=== PATIENT | female | born 1995 | race Asian ===

== ENCOUNTER 2024-05-08 08:00 | Outpatient (CLI) | payer OTHER ==
[2024-05-08 20:47] LABS: CHLAMYDIA TRACHOMATIS DNA NEGATIVE (NEGATIVE); NEISSERIA GONORRHOEAE DNA NEGATIVE (NEGATIVE); TRICHOMONAS VAGINALIS DNA NEGATIVE (NEGATIVE)
== END 2024-05-08 23:59 | disposition home or self-care (01) ==
LOC: LAB.WC 08:00
PROVIDERS: ATTEND Nurse Practitioner
DX: Z11.3 Encounter for screening for infections with a predominantly sexual mode of transmission (principal)
CPT/HCPCS: 87491; 87591; 87661

== ENCOUNTER 2024-05-26 15:24 | Outpatient (CLI) | payer OTHER ==
[2024-05-26 15:52] LABS: BASOPHILS % (AUTO) 0.2 %; EOSINOPHILS # (AUTO) 0.1 10^3/uL (0.0-0.7); EOSINOPHILS % (AUTO) 1.4 %; LYMPHOCYTES # (AUTO) 1.6 10^3/uL (1.5-3.5); LYMPHOCYTES % (AUTO) 16.6 %; MEAN CORPUSCULAR HEMOGLOBIN 27.8 pg (27.0-31.0); MEAN CORPUSCULAR HGB CONC 31.6 g/dL (32.0-36.0); MEAN PLATELET VOLUME 9.3 fL (7.9-10.8); MONOCYTES # (AUTO) 0.7 10^3/uL (0.0-1.0); MONOCYTES % (AUTO) 7.1 %; NEUTROPHILS # (AUTO) 7.1 10^3/uL (1.5-6.6); NEUTROPHILS % (AUTO) 74.2 %; PLT - PLATELET COUNT 304 10^3/uL (130-450); RED BLOOD COUNT 4.32 10^6/uL (4.20-5.40); RED CELL DISTRIBUTION WIDTH 12.7 % (12.0-15.0); WHITE BLOOD COUNT 9.6 x10^3/uL (4.8-10.8)
[2024-05-26 16:20] LABS: BILIRUBIN,URINE NEGATIVE (NEGATIVE); GLUCOSE, URINE (UA) NEGATIVE (NEGATIVE); KETONES,URINE (UA) NEGATIVE (NEGATIVE); LEUKOCYTE ESTERASE, URINE NEGATIVE (NEGATIVE); NITRITE,URINE NEGATIVE (NEGATIVE); OCCULT BLOOD,URINE NEGATIVE (NEGATIVE); PROTEIN,URINE NEGATIVE (NEGATIVE); UROBILINOGEN,URINE 0.2 (NORMAL) E.U./dL (NORMAL)
[2024-05-26 16:31] LABS: CLARITY,URINE CLEAR (CLEAR)
[2024-05-26 17:10] LABS: RBC,URINE None Seen /HPF (0-5); SQUAMOUS EPITHELIAL CELL,UR FEW Squamous (<= Few); WBC,URINE 0-3 /HPF (0-5)
[2024-05-26 17:11] LABS: BACTERIA,URINE Few /HPF (None Seen)
[2024-05-27 03:11] LABS: HBsAG SCREEN Negative (Negative)
[2024-05-27 06:10] LABS: HIV SCREEN 4TH GENERATION Non Reactive (Non Reactive)
[2024-05-27 07:10] LABS: RPR Non Reactive (Non Reactive)
[2024-05-27 12:09] LABS: VARICELLA-ZOSTER AB IGG 291 index (Immune >165)
[2024-05-28 05:09] LABS: HCV AB Non Reactive (Non Reactive)
== END 2024-05-26 15:25 | disposition home or self-care (01) ==
LOC: LAB 15:24
PROVIDERS: ATTEND Nurse Practitioner
DX: Z34.00 Encounter for supervision of normal first pregnancy, unspecified trimester (principal); Z36.89 Encounter for other specified antenatal screening
CPT/HCPCS: 36415; 81001; 85025; 86592; 86762; 86787; 86803; 86850; 86900; 86901; 87086; 87340; 87389

== ENCOUNTER 2024-11-30 00:27 | Inpatient (IN) ==
[2024-11-30 01:06] LABS: RUPTURE OF MEMBRANES PLUS POSITIVE (NEGATIVE)
[2024-11-30] MEDS ORDERED: lidocaine 1% 20 ML MDV ID PRN (01:33)
[2024-11-30] MEDS ORDERED: METHYLERGONOVINE 0.2 MG/ML VIAL IM PRN (01:33)
[2024-11-30] MEDS ORDERED: TERBUTALINE 1 MG/ML VIAL SUBQ PRN (01:33)
[2024-11-30] MEDS ORDERED: OXYTOCIN 10 UNIT/ML VIAL IM PRN (01:33)
[2024-11-30] MEDS ORDERED: LACTATED RINGERS 1,000 ML IV PRN (01:33)
[2024-11-30] MEDS ORDERED: NIFEdipine 10 MG CAPSULE PO PRN ×2 (01:33→18:43)
[2024-11-30] MEDS ORDERED: miSOPROStoL 200 MCG TABLET BC PRN (01:33)
[2024-11-30] MEDS ORDERED: LABETALOL 20 MG/4 ML SYRINGE IVP PRN ×5 (01:33→18:43)
[2024-11-30] MEDS ORDERED: hydrALAZINE INJ 20 MG/ML VIAL IVP PRN ×3 (01:33→18:43)
[2024-11-30] MEDS ORDERED: SODIUM CHLORIDE FLUSH 0.9% 10 ML SYRINGE IVP PRN (01:33)
[2024-11-30] MEDS ORDERED: miSOPROStoL 200 MCG TABLET PR PRN (01:33)
[2024-11-30] MEDS ORDERED: SODIUM CHLORIDE FLUSH 0.9% 10 ML SYRINGE IVP SCH (02:00)
[2024-11-30 02:13] LABS: BASOPHILS % (AUTO) 0.3 %; EOSINOPHILS # (AUTO) 0.1 10^3/uL (0.0-0.7); HCT - HEMATOCRIT 44.2 % (37.0-47.0); HGB - HEMOGLOBIN 14.3 g/dL (12.0-16.0); LYMPHOCYTES # (AUTO) 1.6 10^3/uL (1.5-3.5); LYMPHOCYTES % (AUTO) 15.4 %; MEAN CORPUSCULAR HEMOGLOBIN 29.3 pg (27.0-31.0); MEAN CORPUSCULAR HGB CONC 32.4 g/dL (32.0-36.0); MEAN CORPUSCULAR VOLUME 90.6 fL (81.0-99.0); MEAN PLATELET VOLUME 10.2 fL (7.9-10.8); MONOCYTES # (AUTO) 1.1 10^3/uL (0.0-1.0); MONOCYTES % (AUTO) 10.4 %; NEUTROPHILS # (AUTO) 7.6 10^3/uL (1.5-6.6); NEUTROPHILS % (AUTO) 71.7 %; PLT - PLATELET COUNT 266 10^3/uL (130-450); RED BLOOD COUNT 4.88 10^6/uL (4.20-5.40); RED CELL DISTRIBUTION WIDTH 13.3 % (12.0-15.0); WHITE BLOOD COUNT 10.6 x10^3/uL (4.8-10.8)
--- NOTE | 2024-11-30 02:15 | HISTORY & PHYSICAL EXAMINATION ---
Admit History Smoking Status: Never smoker Other Maternal History Other Maternal History: HPI: This 29 yo @ 37+6 weeks by LMP and confirmed by 8 week ultrasound. Last night 11/29/2024 @ 23:30, she felt a gush of fluid and an increase of contractions since that time. She wasn't sure if it was her bag of carrion at first because she was only leaking a little. She later had a much bigger gush. Then the contractions have continued to become stronger and closer together and she is significantly breathing through them now. Upon arrival her cervix was 1.5/70/-3 and vertex with grossly ruptured. We reviewed management options at length and patient desires expectant management at this time. She has been a patient of [facility] for the duration of her which has remained uncomplicated with the exception of increased maternal weight gain and 7cm fibroid in the lower uterine segment. She wears upper and lower dentures. ROS: No Headache, visual changes or right upper quadrant abdominal pain. Denies significant N/V. Denies urinary urgency or dysuria. All other symptoms reviewed and were negative except per HPI. In the event of an emergency, accepts the administration of blood products. Recent BP: WNL Labs: pending Last u/s EFW: 2740g/ 56% @ 35 weeks Total maternal weight gain: 64# LMP: 03/10/2024 ASHLEY by LMP: 12/15/2024 US: 05/08/2024 @ 8+3 weeks, CW dates Final ASHLEY: 12/15/2024 PROBLEMS: - Has dentures (top and bottom) very self conscious without. Discussed that if she needs to go to the operating room, they may need to be removed depending on anesthesia recommendations. -7cm uterine fibroid: -Active management of the third stage -Type and cross x 2 units on admission -39wk IOL -Excessive weight gain in (52lbs at 29wk visit, 56# at 33+6 weeks) -Impaired 1hr glucose: 3 hour WNL FOB: Damian other children (Jackson's step son/ Damian's adopted son): x1 ALLERGIES: Tylenol(midol), *Ibuprofen* RX: Vitamin FMHX: Father High blood pressure Surgeries: none, all teeth removed except for back molars Social Hx: Monogamous with male partner. Denies current use of alcohol or tobacco, marijuana or other recreational drugs. Reports that she is safe in current relationship. course: Pre- Weight: 118lb BMI: 23.25 Blood type: O+ Antibody: negative CBC: PLT 304 HCT 38.0 HGB 12.0 RUB: immune VZV: immune HBsAg: NR HepC: NR RPR/AB-EIA: NR HIV: NR PAP: 05/10/2024 neg GC/CT: neg HSV: denies Genetic testing: declined Covid: Flu: 10/03/2024 RSV: 10/31/2024 FAS: 07/31/2024 Placenta: Anterior Cord: 3VC KASH: 11.9cm EFW: 427g 93%tile 11/13/2024 (35+6 weeks) 2740g/ 56% 50gm OGCT: 154 3HR GTT: WNL - F 83; 1hr 119; 2hr 106; 3hr 103 TDAP: 10/03/2024 Breast Pump: 10/03/2024 RSV 10/31/2024 Antibody screen: 3rd trimester PLT 260 HCT 38.3 HGB 12.4 3rd trimester RPR NR GBS:Negative Delivery plan: Desires epidural for pain management. . Okay with active management of the third stage. MOD: Anticipate Contraception:unsure Physical exam: Normocephalic, atraumatic No increased work for breathing Abdomen gravid, soft, nontender. EFW 3600 FHR baseline 140, moderate variability, + accelerations, no decelerations Contractions palpate moderate every 2-4 minutes with soft resting tone SVE 1.5/thick/high, membranes grossly ruptured. RN exam. Bilateral LE's trace edema Mood is good. Assessment: 29 yo @ 37+6 weeks gestation by 8 wk U/S Early labor FHR Cat I GBS NEG 7cm lower uterine fibroid Plan: Admit to [facility] for expectant management Continuous monitoring/ Intermittent heart rate auscultation. Increased bleeding risk with uterine fibroid. Will type and cross two units. Plan on active management of third stage Jacuzzi PRN. Nitrous oxide PRN. Epidural PRN Maternal Request. Anticipate . HPI Current : Vital Signs Temperature 37.0 C 11/30/24 01:12 Pulse Rate 73 11/30/24 01:12 Respiratory Rate 18 11/30/24 01:12 Blood Pressure 118/72 11/30/24 01:12 Meds/Allgy Home Medications Ambulatory Orders Medication Instructions Recorded Confirmed vitamins no.159-iron tab PO 08/02/24 11/15/24 fumarate 28 mg-folic acid 800 mcg tablet ( Vitamin) Allergies Allergies Allergy/AdvReac Type Severity Reaction Status Date / Time acetaminophen (From [facility]) Allergy Intermediate Rash Verified 11/15/24 09:33 ibuprofen Allergy Intermediate Rash Verified 11/15/24 09:33 pamabrom (From [facility]) Allergy Intermediate Rash Verified 11/15/24 09:33 PFSH Active Problems All Active Problems (Updated 11/23/24 @ 09:15 by Megan Person TOBACCO ROLLER) Wears dentures (Acute) Uterine size date discrepancy (Acute) Excessive weight gain affecting (Acute) Uterine size date discrepancy (Acute) Supervision of normal first in third trimester (Acute) Abnormal glucose tolerance affecting , antepartum (Acute) Family History Family History (Updated 08/02/24 @ 11:27 by Cici Colin MA) Father High blood pressure Social History Social History (Updated 08/02/24 @ 11:27 by Cici Colin MA) Smoking Status: Never smoker Do you vape?: No ETOH Use: None Substance Use: denies use Physical Abdominal Exam Vital Signs: Temp Pulse Resp BP 37.0 C 73 18 118/72 11/30/24 01:12 11/30/24 01:12 11/30/24 01:12 11/30/24 01:12 Plan for Labor Plan For Labor I expect patient to be DC'd or transferred within 96 hours.: Yes Conclusion/Plan Lab Results 11/30/24 02:00
[2024-11-30] MEDS ORDERED: ROPIVACAINE 0.2% 200 MG/100 ML BAG EP ONE (05:43)
[2024-11-30] MEDS ORDERED: NALOXONE 0.4 MG/ML VIAL IVP PRN ×2 (06:14→18:43)
[2024-11-30] MEDS ORDERED: diphenhydrAMINE INJ 50 MG/ML VIAL IVP PRN (06:14)
[2024-11-30] MEDS ORDERED: METOCLOPRAMIDE 10 MG/2 ML VIAL IVP PRN (06:14)
[2024-11-30] MEDS ORDERED: LACTATED RINGERS 500 ML IV ONE (06:14)
[2024-11-30] MEDS ORDERED: ONDANSETRON 4 MG/2 ML VIAL IVP PRN (06:14)
[2024-11-30] MEDS ORDERED: NALBUPHINE 10 MG/ML AMP IVP PRN (06:14)
[2024-11-30] MEDS ORDERED: ePHEDrine 50 MG/ML VIAL IVP PRN (06:14)
--- NOTE | 2024-11-30 06:17 | ANESTHESIA PROCEDURE NOTE ---
Pre-Anesthesia VS, & Labs Diagnosis Surgical Diagnosis:: labor pain Procedure Procedure: epidural Vitals Vital Signs: Temp Pulse Resp BP 37.0 C 73 18 118/72 11/30/24 01:12 11/30/24 01:12 11/30/24 01:12 11/30/24 01:12 NPO Last Fluid Intake: t/o noc Is Patient ?: Yes Lab Results Current Lab Results: Laboratory Tests 11/30/24 02:00: WBC 10.6, RBC 4.88, Hgb 14.3, Hct 44.2, MCV 90.6, MCH 29.3, MCHC 32.4, RDW 13.3, Plt Count 266, MPV 10.2, Neut # (Auto) 7.6 H, Lymph # (Auto) 1.6, [place] # (Auto) 1.1 H, Eos # (Auto) 0.1, Baso # (Auto) 0.0, Absolute Nucleated RBC 0.00, Nucleated RBC % 0.0, Blood Type O POSITIVE, Antibody Screen NEGATIVE Lab results reviewed: Yes 11/30/24 02:00 Meds/Allgy Home Medications Ambulatory Orders Medication Instructions Recorded Confirmed vitamins no.159-iron tab PO 08/02/24 11/15/24 fumarate 28 mg-folic acid 800 mcg tablet ( Vitamin) Allergies Allergies Allergy/AdvReac Type Severity Reaction Status Date / Time ibuprofen Allergy Intermediate Hives Verified 11/30/24 05:10 pamabrom (From [facility]) Allergy Intermediate Hives Verified 11/30/24 05:09 PFS Active Problems All Active Problems (Updated 11/23/24 @ 09:15 by Megan Person [facility]) Wears dentures (Acute) Uterine size date discrepancy (Acute) Excessive weight gain affecting (Acute) Uterine size date discrepancy (Acute) Supervision of normal first in third trimester (Acute) Abnormal glucose tolerance affecting , antepartum (Acute) Family History Family History (Updated 08/02/24 @ 11:27 by Cici Colin MA) Father High blood pressure Social History Social History (Updated 08/02/24 @ 11:27 by Cici Colin MA) Smoking Status: Former smoker Do you vape?: No ETOH Use: None Substance Use: denies use Anesthesia Exam (Expanded) Exam General: Alert, Oriented x3, Cooperative and Mild distress Dental: WNL Mouth Openin Fingerbreadth Neck Mobility: Normal Mallampati classification: II Thyromental Distance: 4-6 cm Respiratory: No respiratory distress Cardiovascular: Regular rate Neurological: Normal speech Mental/Cognitive Status: Alert/Oriented X3 and Normal for patient Cognitive Status: Within normal limits Plan Plan Anesthesia Type: Epidural Consent for Procedure(s) Verified and Reviewed: Yes Code Status: Attempt Resuscitation ASA Classification ASA classification: 2-Mild systemic disease Is this case an emergency?: No
[2024-11-30 06:38] VITALS: O2SAT 99
--- NOTE | 2024-11-30 09:07 | PROVIDER PROGRESS NOTE ---
Labor Progress Note Labor Progress Note Labor Progress Note/Additional Text: S: Comfortable with epidural. Supportive at bedside O: FHR 140, moderate, + accelerations, - decelerations. SVE 4cm, -2, mid position, grossly ruptured, vtx A: 29yo @ 37+6wks gestation by first trimester U/S PROM 11/29/2024 @ 2300 Minimal cervical change since 0400. Now irregular contraction pattern GBS negative Increased hemorrage and labor dystocia risk (7cm lower uterine segment fibroid) P: Maintain epidural for labor anesthesia Continuous monitoring Begin pitocin per unit protocol and titrate to adequate contraction pattern, reassess for labor progression in 4-6 hours and consider IUPC if needed Will encouraged rotation in bed on peanut ball after patient is comfortable with epidural. Will plan to have OBGYN on unit at time of vaginal delivery Reviewed plan of care with refrigeration lead OBGYN
[2024-11-30] MEDS: OXYTOCIN/SODIUM CHLORIDE 500 ML IV SCH (09:14)
[2024-11-30] MEDS: LACTATED RINGERS 1,000 ML IV SCH (09:45)
--- NOTE | 2024-11-30 12:00 | PHARMACY PROGRESS NOTE ---
Best Possible Medication History Admit Date and Time: 11/30/24 0133 Home Medications Medication Instructions Recorded Confirmed Type vitamins no.159-iron 1 tab PO DAILY 08/02/24 11/30/24 History fumarate 28 mg-folic acid 800 mcg tablet ( Vitamin) aspirin 81 mg tablet,delayed 81 mg PO DAILY 11/30/24 11/30/24 History release (Adult Low Dose Aspirin) Processed by: Pharmacy (Medication Reconciliation completed by Specialty Transformer AssemblerKatherine) Medications reviewed in ED?: No Medication History completed: Yes Patient Interview: Completed Secondary Source(s): Insurance records [facility] Statement: As the person ultimately responsible for medication therapy, providers are able to order a medication from an existing home medication list in [facility] via the "Reconcile Routine" prior to Confirmation of that medication by support representative. Such practice is discouraged except when the physician, in their clinical judgment, deems that a medical need exists for a medication without regard to previous use.
--- NOTE | 2024-11-30 12:38 | PROVIDER PROGRESS NOTE ---
Labor Progress Note Labor Progress Note Labor Progress Note/Additional Text: Doing well, comfortable with epidural. SVE 6/80/-2 unable to tirate pitocin further as contractions are regular and appear to be q 2.5-3 minutes. IUPC placed. Some small variables, none significant. 140 moderate variability, + accelerations, no significant decelerations
[2024-11-30] MEDS ORDERED: LIDOCAINE-MPF 2% 5 ML VIAL ONE (14:47)
[2024-11-30] MEDS: ROPIVACAINE 0.2% 200 MG/100 ML BAG EP PRN (14:55)
[2024-11-30] MEDS ORDERED: SODIUM CHLORIDE 0.9% 10 ML VIAL IVP ONE (15:49)
[2024-11-30] MEDS ORDERED: LIDOCAINE-PF 2% 10 ML AMP SUBQ ONE (15:49)
[2024-11-30] MEDS ORDERED: fentaNYL 100 MCG/2 ML VIAL ONE (15:49)
--- NOTE | 2024-11-30 17:08 | ANESTHESIA PROCEDURE NOTE ---
Anesthesia Epidural Template Plan Plan: positive Other Other Comments Other Comments: Patient c/o pain with contractions. Rates pain 7/10. Stated she only got 15 mins of relief with previous bolus. Epidural bolused with 5ml of 2% lidocaine, 100mcg fentanyl and 3ml of PF NS. Epidural infusion changed to 10m q 50 mins PIEB. No PCEA. Patient reports pain level decreased to 2/10 pain after bolus.
[2024-11-30] MEDS ORDERED: CARBOPROST TROMETHAMINE 250 MCG/ML VIAL IM ONE (17:47)
[2024-11-30] MEDS: OXYTOCIN/SODIUM CHLORIDE 500 ML IV PRN (17:50)
[2024-11-30] MEDS: TRANEXAMIC ACID IN NACL 1,000 MG/100 ML BAG IV PRN (18:11)
[2024-11-30] MEDS: fentaNYL 100 MCG/2 ML VIAL IVP PRN (18:22)
[2024-11-30] MEDS ORDERED: LABETALOL 5 MG/1 ML 20 ML MDV IVP PRN (18:43)
[2024-11-30] MEDS ORDERED: SIMETHICONE CHEW 80 MG TABLET PO PRN (18:43)
[2024-11-30] MEDS ORDERED: OXYTOCIN/SODIUM CHLORIDE 500 ML IV PRN (18:43)
--- NOTE | 2024-11-30 18:43 | DELIVERY NOTE ---
Delivery Note Delivery Outcome Delivery Date: 11/30/24 Delivery Time: 17:48 Delivery Comments (Free Text/Narrative) Delivery Comments (Free Text/Narrative): This 29 -year-old, @ 37+7 weeks gestation by first trimester ultrasound/ LMP presented @0030 on 11/30/2024 in early labor and in good condition after SROM 11/29/2024 @ 2330. Cervix was 1.5/70/-2 and Vertex presentation by francia's and exam. GBS negative. Oxytocin for labor augmentation. FHR pattern demonstrated 140 baseline in a category I prior to second stage. Normal labor course. Epidural placed upon maternal request. She then progressed to complete/complete and ready to deliver. : Normal spontaneous vaginal delivery of a viable male infant on 11/30/2024@ 1748. No nuchal cord. The was placed on maternal abdomen, stimulated, dried and placed skin to skin. Apgars 7 & X9 @ 1 & 5 minutes. The umbilical cord was allowed to stop pulsating at which time it was doubly clamped by delivering provider and cut by security team lead. 3VC. Cord blood was obtained. Fundal massage and gently cord traction applied for active management of the third stage, placenta delivered spontaneously and intact and appeared normal. QBL 289cc. Placenta was not sent to pathology. Pitocin administered via IV for hemostasis and allowed to run freely. Initial increased briskness to vaginal bleeding resolved after administration of pitocin bolus and 1g TXA. Uterine massage was performed until uterus was deemed firm. Extra caution was given for hemorrhage risk (initial and postposted) considering the significant uterine fibroid. weight pending at this time. Inspection of the perineum noted an 3rd degree laceration. Dr. Moseley was asked to come to bedside to address the repair. See MD addendum. Once the third degree laceration was repaired, The remaining second degree extending to the left vaginal sulcus was repaired in the usual, sterile fashion with running suture of 3-0 vicryl (rapide). Upon re-inspection the patient was hemostatic. Uterus again massaged and found to be firm. Needle and sponge counts were correct. Uterine fundus firm and there is no excessive bleeding. Tissues well approximated. Skin to skin initiated. Family bonding well. Both mother and baby are in stable condition.
[2024-11-30] MEDS: ACETAMINOPHEN 500 MG TABLET PO PRN (20:16)
[2024-11-30] MEDS: DOCUSATE SODIUM 100 MG CAPSULE PO SCH (22:15)
[2024-12-01] MEDS: PRENATAL VITAMIN TABLET PO SCH (08:51)
--- NOTE | 2024-12-01 10:09 | Discharge Summary ---
Discharge Summary HPI History of Present Illness: Date of Admission: 11/30/2024 Date of Discharge: 12/01/2024 Diagnosis on admission: Assessment: 29 yo @ 37+6 weeks gestation by 8 wk U/S Early labor FHR Cat I GBS NEG 7cm lower uterine fibroid Diagnosis on Discharge 29 yo s/p on 11/30/2024 @1748 3rd degree perineal laceration with repair Normal course Physical exam: Normocephalic, atraumatic Trace edema lower extremities No increased work of breathing Normal uterine involution, FF below umbilicus Scant rubra bleeding Perineal discomfort minimal-moderate. Managed with tylenol and rest Mood is good. Brief History: She is a patient of [facility] who presented on 11/30/2024 with complaints of ROM and contractions. She was found to be linda regularily, received an epidural for pain management and later required augmentation with pitocin for continued labor progression. She spontaneously delivered a viable male apgars 7 and 9 at 1 and 5 minutes respectively. EBL 289 ml. 3rd degree laceration with repair. She has been doing well in her course. She is ambulating and tolerating a regular diet. She is urinating without difficulty and her lochia is normal. Her pain is well controlled without narcotic management. She will be discharged to home today on day 1 and encouraged tylenol and stool softeners PRN. She intends to follow up with [facility] in 1 week for telehealth. Appointment scheduled for 12/07/2024 @ 0930 for telehealth She has been given precautions to call if she has any new or worsening sx such as fevers, chills, abdominal pain, increasing bleeding, or foul smelling vaginal lochia. preeclamptic precautions reviewed as well. RUB: immune VZV: immune RH+ ALLERGIES Allergies Allergy/AdvReac Type Severity Reaction Status Date / Time ibuprofen Allergy Intermediate Hives Verified 11/30/24 05:10 pamabrom (From [facility]) Allergy Intermediate Hives Verified 11/30/24 05:09 MEDICATIONS Ambulatory Orders Medication Instructions Recorded Confirmed vitamins no.159-iron 1 tab PO DAILY 08/02/24 11/30/24 fumarate 28 mg-folic acid 800 mcg tablet ( Vitamin) aspirin 81 mg tablet,delayed 81 mg PO DAILY 11/30/24 11/30/24 release (Adult Low Dose Aspirin) LABS 11/30/24 02:00 Discharge Plan Discharge Prescriptions: No Action aspirin [Adult Low Dose Aspirin] 81 mg tablet,delayed release (DR/EC) 81 mg PO DAILY Vitamin 28 mg iron- 800 mcg tablet 1 tab PO DAILY Print Language: Venezuelan
[2024-12-01] MEDS: GABAPENTIN 100 MG CAPSULE PO PRN (15:47)
[2024-12-02 06:21] VITALS: TEMP 98.1
--- NOTE | 2024-12-02 09:50 | Discharge Summary ---
Discharge Summary HOSPITAL COURSE Hospital Course: Date of Admission: 11/30/2024 Date of Discharge: 12/02/2024 Diagnosis on admission: 1. 29 yo @ 37+6 weeks gestation by 8 wk U/S 2. Early labor 3. FHR Cat I 4. GBS NEG 5. 7cm lower uterine fibroid Diagnosis on Discharge 1. 29 yo PPD #2 2. 3rd degree perineal laceration with repair 3. 4. Normal course Brief History: She is a patient of [facility] who presented on 11/30/2024 with complaints of ROM and contractions. She was found to be linda regularly, received an epidural for pain management and later required augmentation with pitocin for continued labor progression. She spontaneously delivered a viable male infant apgars 7 and 9 at 1 and 5 minutes respectively. EBL 289 ml. 3rd degree laceration with repair. She has been doing well in her course. She is ambulating and tolerating a regular diet. She is urinating without difficulty and her lochia is normal. Her pain is well controlled with oral medications. She will be discharged home today on day #2 with instructions to continue taking her vitamin while and to continue taking Ibuprofen and Tylenol over the counter as needed for pain management. She intends to follow up with myself at [facility] in 1 week for routine visit or sooner if needed. She has been given precautions to call if she has any worsening fevers, chills, abdominal pain, increased vaginal bleeding or foul smelling vaginal lochia. Physical Exam: Normocephalic, atraumatic. Heart RRR w/o M/G/R, lungs CTAB, abdomen soft and nontender with fundus firm at U, perineum intact, light lochia rubra, bilateral LE's no edema. Mood is good. ALLERGIES Allergies Allergy/AdvReac Type Severity Reaction Status Date / Time ibuprofen Allergy Intermediate Hives Verified 11/30/24 05:10 pamabrom (From [facility]) Allergy Intermediate Hives Verified 11/30/24 05:09 MEDICATIONS Ambulatory Orders Medication Instructions Recorded Confirmed vitamins no.159-iron 1 tab PO DAILY 08/02/24 11/30/24 fumarate 28 mg-folic acid 800 mcg tablet ( Vitamin) LABS 11/30/24 02:00 Discharge Plan Discharge Patient Disposition: Home, Self Care Prescriptions: Continued Vitamin 28 mg iron- 800 mcg tablet 1 tab PO DAILY Discontinued aspirin [Adult Low Dose Aspirin] 81 mg tablet,delayed release (DR/EC) 81 mg PO DAILY Print Language: Iraqi Patient Instructions: Vaginal After, , Self Care
[2024-12-02 10:17] VITALS: BP 119/66
--- NOTE | 2024-12-02 13:11 | Labor Flowsheet ---
Labor Flowsheet Datetime Report Generated by CPN: 12/02/2024 13:10 Datetime: 12/02/2024 10:17 VITAL SIGNS NBP Sys/Heike/Mean (mmHg): 119 : 66 : 76 Pulse: 71 Datetime: 11/30/2024 20:09 SpO2 (%): 99 Datetime: 11/30/2024 18:49 Stage of : Recovery Datetime: 11/30/2024 17:49 LaborFlag: Labor Datetime: 11/30/2024 17:47 UTERINE ACTIVITY Monitor Mode: Internal Frequency (min): 2 Quality: Strong Duration (sec): 40-70 Pattern: Normal: <= 5 Contractions in 10 Minutes Resting Tone (Palpate): Relaxed FHR Baseline Rate : 150 Variability: Moderate 6-25 bpm Datetime: 11/30/2024 17:30 Accelerations: 15X15 Decelerations: Variable Datetime: 11/30/2024 17:19 COMMUNICATION Communication: Provider at Bedside Datetime: 11/30/2024 17:15 Pitocin Checklist: At Least 1 Acceleration of 15 bpm x 15 Seconds in 30 Minutes or Adequate Variabi lity; No More than 1 Late Deceleration Occurred in Past 30 Minutes; No More than 2 Variable Decelerat ions > 60 Seconds in Duration and decreasing >60 bpm in 30 minutes; No More than 5 Uterine Contractio ns in 10 Minutes for any 20 Minute Interval; Uterus Palpates Soft between Contractions; IUPC Resting Tone less than 25 mmHg ASSESSMENT A Monitor Mode: External US Datetime: 11/30/2024 17:00 Resting Tone IUP (mmHg): 20 [place] Units (mmHg): 320 Datetime: 11/30/2024 16:56 I/O Interventions: [place]air Discontinued STAGE 2 Pushing: Coached on Pushing; Urge to Push Pushing Position: Pushing with Contractions; Pushing Lithotomy Datetime: 11/30/2024 16:48 MEDICATIONS Pitocin (milliunits): Decreased to @ 3 Datetime: 11/30/2024 16:28 VAGINAL EXAM Dilatation (cm): 9.5 Effacement (%): 100 Station: 1 Exam by: Haylee Ghosh Vaginal Bleeding: Normal Show Vaginal Exam Comments: anterior lip present Datetime: 11/30/2024 16:05 Temperature (C): 37.2 Datetime: 11/30/2024 15:49 Patient Care Comments: Pt vomitting Datetime: 11/30/2024 15:45 PAIN Pain Scale: 7 Pain Presence: Intermittent Pain Type: Sharp; Contraction Pain Coping: Talking Through Contractions Pain Assessment Comments: Texted MILKING SYSTEM INSTALLER for bolus Datetime: 11/30/2024 15:11 Patient Position/Activity: Right Lateral Datetime: 11/30/2024 14:49 Communication Comments: MILKING SYSTEM INSTALLER at bedside, extra bolus given Datetime: 11/30/2024 14:40 Anesthesia Comments: texted MILKING SYSTEM INSTALLER to come and eval pt Datetime: 11/30/2024 12:25 Monitor Interventions for UA: IUPC Inserted Datetime: 11/30/2024 11:01 Contraction Comments: RN palpating ctxs Datetime: 11/30/2024 10:48 Monitor Interventions for FHR: Ultrasound Adjusted Datetime: 11/30/2024 09:48 PATIENT CARE IV/Blood Work: IV Bolus Started Datetime: 11/30/2024 09:01 FHR Baseline Changes: No Baseline Change Datetime: 11/30/2024 07:25 Membrane Status: Ruptured Membranes Ruptured Date/Time: 11/29/2024 23:30 Membranes Rupture Method: Spontaneous Amniotic Fluid Color: Clear Amniotic Fluid Amount: Small Amniotic Fluid Odor: Normal Cervix, Position: Midposition Presentation 'A': Cephalic VILLA'S SCORE Dilatation (cm): 3-4 cms Effacement: 60-70_ effaced Station: minus 2 Consistency: Soft Position: Midposition Total Villa's Score: 8 : 5-8 = Small percentage of induction failure Datetime: 11/30/2024 07:00 Procedures: Sterile Vag Exam Hygiene: Carola Care Datetime: 11/30/2024 06:30 Category: Category I Datetime: 11/30/2024 06:06 ANESTHESIA Epidural Procedure: Completed Datetime: 11/30/2024 05:25 Provider Notified (Name): Villagomez, C. MILKING SYSTEM INSTALLER Notification Reason: Patient Request Datetime: 11/30/2024 00:51 MATERNAL ASSESSMENT Level of Consciousness: Alert DTR's/Clonus: No Clonus Headache: Denies Breath Sounds, Left: Clear and Equal Breath Sounds, Right: Clear and Equal Nausea/Vomiting: Denies RUQ Epigastric Pain: Denies
--- NOTE | 2024-12-03 15:12 | PHARMACY PROGRESS NOTE ---
Best Possible Medication History Admit Date and Time: 11/30/24 0133 Home Medications Medication Instructions Recorded Confirmed Type vitamins no.159-iron 1 tab PO DAILY 08/02/24 11/30/24 History fumarate 28 mg-folic acid 800 mcg tablet ( Vitamin) gabapentin 100 mg capsule 100 mg PO TID #20 caps 12/02/24 12/03/24 Rx Processed by: Pharmacy Medications reviewed in ED?: No Medication History completed: No Patient Interview: Completed Secondary Source(s): Insurance records [facility] Statement: Per Pt abner with RN and [employer] Rx records. As the person ultimately responsible for medication therapy, providers are able to order a medication from an existing home medication list in [facility] via the "Reconcile Routine" prior to Confirmation of that medication by it support analyst. Such practice is discouraged except when the physician, in their clinical judgment, deems that a medical need exists for a medication without regard to previous use.
== END 2024-12-02 12:30 | disposition home or self-care (01) | DRG 768 ==
LOC: WFO 00:27 → FBP 00:30
PROVIDERS: ADMIT Nurse Practitioner; ATTEND Nurse Practitioner